=== PATIENT | male | born 1990 ===

== ENCOUNTER 2016-06-21 09:21 | Emergency (ER) | payer OTHER ==
[2016-06-21 09:34] VITALS: BMI 39.9
[2016-06-21 09:36] VITALS: TEMP 98.3; O2SAT 98
--- NOTE | 2016-06-21 10:37 | ED PDOC ---
Arrival/HPI - General Chief Complaint: Eye Problem Time Seen by Provider: 06/21/16 10:04 Historian: Patient, Spouse - History of Present Illness Narrative History of Present Illness (Text): 06/21/16 10:04 This 25 yo male presents to this ED c/o right eye pain, redness, and tearing x 2 days. Patient stated [place] was [place] 2 days ago. his eye started bothering him, so he was "rubbining it". This morning his eye lid were "shot close". Patient denies eye trauma, vision changes, or facial rash. Time/Duration: Other (2 days) Quality: Aching Context: Home Past Medical History - Provider Review Nursing Documentation Reviewed: Yes - Cardiac Hx Cardiac Disorders: No - Pulmonary Hx Respiratory Disorders: Yes Hx Asthma: Yes - Neurological Hx Neurological Disorder: No - HEENT Hx HEENT Disorder: No - Renal Hx Renal Disorder: No - Endocrine/Metabolic Hx Endocrine Disorders: No - Hematological/Oncological Hx Blood Disorders: No - Integumentary Hx Dermatological Disorder: No - Musculoskeletal/Rheumatological Hx Musculoskeletal Disorders: No - Gastrointestinal Hx Gastrointestinal Disorders: No - Genitourinary/Gynecological Hx Genitourinary Disorders: No - Psychiatric Hx Psychophysiologic Disorder: No Hx Substance Use: No Family/Social History - Physician Review Nursing Documentation Reviewed: Yes Family/Social History: No Known Family HX Smoking Status: Never Smoked Hx Alcohol Use: No Hx Substance Use: No Allergies/Home Meds Allergies/Adverse Reactions: Allergies No Known Allergies Allergy (Verified 06/21/16 09:33) Review of Systems - Review of Systems Constitutional: Normal. absent: Fatigue, Weight Change, Fevers Eyes: Photophobia, Other (eye redness, eyelid discharge) ENT: Normal. absent: Sore Throat, Rhinorrhea Respiratory: Normal. absent: SOB, Cough, Sputum, Wheezing Cardiovascular: Normal. absent: Chest Pain, Palpitations, Edema Gastrointestinal: Normal. absent: Abdominal Pain, Nausea, Vomiting Genitourinary Male: Normal. absent: Dysuria, Frequency, Hematuria Musculoskeletal: Normal Skin: Normal Neurological: Normal. absent: Headache, Dizziness Endocrine: Normal Hemo/Lymphatic: Normal Psychiatric: Normal Physical Exam Vital Signs Temp Pulse Resp BP Pulse Ox 06/21/16 09:35 98.3 F 85 16 113/69 98 Temperature: Afebrile Blood Pressure: Normal Pulse: Regular Respiratory Rate: Normal Appearance: Positive for: Well-Appearing, Non-Toxic, Comfortable Pain Distress: None Mental Status: Positive for: Alert and Oriented X 3 - Systems Exam Head: Present: Atraumatic, Normocephalic Pupils: Present: PERRL, Other (No hyphema) Extroacular Muscles: Present: EOMI, Other (No stye). No: Entrapment Conjunctiva: Present: Injected, Other ((+) fluorescine stain was positive for uptake 1/2 beltre shape located from 5p to 7pm ) Mouth: Present: Moist Mucous Membranes Pharnyx: Present: Normal. No: ERYTHEMA, EXUDATE, TONSILS ENLARGED Neck: Present: Normal Range of Motion. No: Meningeal Signs, MIDLINE TENDERNESS , Paraspinal Tenderness, Lymphadenopathy Respiratory/Chest: Present: Clear to Auscultation, Good Air Exchange. No: Respiratory Distress, Accessory Muscle Use Cardiovascular: Present: Regular Rate and Rhythm, Normal S1, S2. No: Murmurs Abdomen: Present: Normal Bowel Sounds. No: Tenderness, Distention, Peritoneal Signs Back: Present: Normal Inspection. No: CVA Tenderness Upper Extremity: Present: Normal Inspection. No: Cyanosis, Edema Lower Extremity: Present: Normal Inspection. No: Edema Neurological: Present: GCS=15, CN II-XII Intact, Speech Normal, Motor Func Grossly Intact, Normal Sensory Function, Normal Cerebellar Funct, Gait Normal Skin: Present: Warm, Dry, Normal Color. No: Rashes Psychiatric: Present: Alert, Oriented x 3, Normal Insight, Normal Concentration Medical Decision Making ED Course and Treatment: 06/21/16 11:[address] Thomas Regulatory Affairs Coordinator, regarding c/o right eye tearing, discomfort. Patient had denied eye trauma. Patient stated exposure to water park [place]. Patient has eye lid discharge this morning with photophobia. Fluorescine stain was positive for uptake. Dr. Thomas recommended Erythromycin ointment and eye pressure patch. Dr. Thomas wants to see patient tomorrow at 10 am. Re-evaluation Time: 11:31 Reassessment Condition: Re-examined, Improved - Medication Orders Current Medication Orders: Erythromycin (Erythromycin) 1 applic OD ONCE ONE Stop: 06/21/16 11:27 Disposition/Present on Arrival - Present on Arrival Any Indicators Present on Arrival: No History of DVT/PE: No History of Uncontrolled Diabetes: No Urinary Catheter: No History of Decub. Ulcer: No History Surgical Site Infection Following: None - Disposition Have Diagnosis and Disposition been Completed?: Yes Diagnosis: Infected corneal abrasion Disposition: HOME/ ROUTINE Disposition Time: 11:34 Patient Plan: Discharge Condition: GOOD Discharge Instructions (ExitCare): Corneal Ulcer (ED), Corneal Abrasion (ED) Additional Instructions: Dr. Thomas is expecting to see you at 10 am for follow up visit tomorrow. Apply medication as instructed. Return to emergency if symptoms worsen. Prescriptions: Erythromycin 0.5% [Ilytocin] 1 applic OD TID #1 tube Oxycodone HCl/Acetaminophen [Percocet 10-325 mg Tablet] 1 each PO DAILY PRN #2 tablet PRN Reason: Pain, Severe (8-10) Referrals: Francesco Thomas MD [Staff Provider] - Follow up with primary Forms: WORK NOTE
[2016-06-21] MEDS ORDERED: Erythromycin 0.5% Ophth Oint 1 APPLIC/3.5 G OD ONE (11:26)
[2016-06-21 11:30] VITALS: BP 115/71; PULSE 79; RESP 18
[2016-06-21] MEDS ORDERED: TDAP Vaccine 0.5 mL Syr IM ONE (11:48)
== END 2016-06-21 12:15 | disposition home or self-care (01) ==
LOC: ED 09:21
DX: S05.01XA Injury of conjunctiva and corneal abrasion without foreign body, right eye, initial encounter (principal); X58.XXXA Exposure to other specified factors, initial encounter; Y93.89 Activity, other specified; Y92.831 Amusement park as the place of occurrence of the external cause; Z23 Encounter for immunization